=== PATIENT | male | born 1955 | race Caucasian/White ===

== ENCOUNTER 2018-02-12 09:58 | Emergency (ER) | payer OTHER ==
[2018-02-12] MEDS ORDERED: MECLIZINE HCL 25 MG TAB PO ONE (11:07)
--- NOTE | 2018-02-12 11:07 | EDPHY ---
H & P Stated Complaint: 2 wks increasing vertigo, nyst L side, CT 02/09 - Personal History Current Tetanus/Diphtheria Vaccine: Yes - Medical/Surgical History Hx Asthma: No Hx Chronic Respiratory Disease: No Hx Diabetes: No Hx Cardiac Disease: No Hx Renal Disease: No Hx Cirrhosis: No Hx Alcoholism: No Hx HIV/AIDS: No Hx Splenectomy or Spleen Trauma: No Other PMH: Ear surgery, HTN, Thyroid, hernia - Social History Smoking Status: Never smoked Time Seen by Provider: 02/12/18 10:38 HPI/ROS: CHIEF COMPLAINT: Dizziness HISTORY OF PRESENT ILLNESS: 62-year-old male presents with a 2 week history of intermittent dizziness. He is traveling around the country and 2 weeks ago he developed transient dizziness while driving. When he looks in his peripheral vision he gets the moment of feeling dizzy, especially when a car is driving past him. He was seen in an outside emergency department 1 week ago and had a normal evaluation, including laboratory studies, EKG and CT scan of the brain. He was placed on lisinopril 10 mg daily for hypertension. He has been keeping a blood pressure log since that visit and his blood pressures have been normal. He presents today because he has developed dizziness even when he is walking. The dizziness with walking occurs when he looks in his peripheral vision and is associated with anxiety. History of inner ear surgery x2. No chest pain, shortness of breath. REVIEW OF SYSTEMS: complete 10 point ROS reviewed and is negative except for the noted elements in the HPI (Vanna Ibrahim) - Physical Exam Exam: General Appearance: Alert, pleasant Eyes: Pupils equal and round, no conjunctival pallor or injection, horizontal nystagmus, looking to the left recreates the symptoms ENT, Mouth: Mucous membranes moist Neck: Normal inspection Respiratory: Lungs are clear to auscultation Cardiovascular: Regular rate and rhythm Gastrointestinal: Abdomen is soft and nontender Neurological: Alert, oriented x3, cranial nerves II through XII intact, motor 5 /5, sensory intact to light touch, normal gait Skin: Warm and dry, no rash Extremities: Nontender, no pedal edema Psychiatric: Mood and affect normal (Vanna Ibrahim) Constitutional: Initial Vital Signs Temperature (C) 36.9 C 02/12/18 10:12 Heart Rate 68 02/12/18 10:12 Respiratory Rate 16 02/12/18 10:12 Blood Pressure 178/106 H 02/12/18 10:12 O2 Sat (%) 95 02/12/18 10:12 O2 Delivery Mode Room Air Allergies/Adverse Reactions: No Known Allergies Allergy (Unverified 02/12/18 10:10) Home Medications: Medication Instructions Recorded Aspirin 81mg (*) 02/12/18 Levothyroxine 02/12/18 Lisinopril 02/12/18 Meclizine HCl [Meclizine HCl 25 mg 50 mg PO BID PRN #14 tab 02/12/18 (RX,OTC)] SIMVASTATIN 02/12/18 Medical Decision Making - Diagnostics EKG Interpretation: EKG interpreted by me reveals normal sinus rhythm, rate 61, large QRS and lead V2, consistent with RVH. (Vanna Ibrahim) ED Course/Re-evaluation: This patient presents with persistent and worsening vertigo. Prior evaluation including CT scan of the brain is unremarkable. Symptoms are clearly reproduced with eye movement. Neurologic exam is otherwise normal. MRI of the brain ordered to rule out CVA. Meclizine 25 mg orally given. Signed over to Dr. Britton at shift change. If the MRI of the brain is normal, discharge home with follow up with ENT. (Vanna Ibrahim) Differential Diagnosis: Differential diagnosis includes TIA, stroke, intracranial hemorrhage, tumor, electrolyte abnormality and acute labyrinthitis. (Vanna Ibrahim) Other Provider: This patient was signed out to me at [address] Ibrahim pending MRI brain, with plan for discharge if normal. This study was read as normal. On re-evaluation , patient feels better but is still symptomatic. I consulted Dr. Vivas from ENT who agrees with plan and will see the patient in office on Thursday. The patient is concerned about this timing given the fact they are visiting [place]. I attempted to call ENT to see if they had an earlier appointment available but was unable to reach them. I have written the patient for meclizine and we discussed strict return precautions. (Claudio Britton) - Data Points Laboratory Results: Laboratory Results 02/12/18 11:37 02/12/18 10:28 Medications Given: Discontinued Medications Meclizine HCl (Meclizine Hcl) 25 mg PO EDNOW ONE Stop: 02/12/18 11:08 Last Admin: 02/12/18 11:47 Dose: 25 mg Departure - Departure Disposition: Home, Routine, Self-Care Clinical Impression: Vertigo Condition: Good Instructions: Vertigo (ED) Additional Instructions: Take meclizine 25mg every 6 hours as needed for vertigo. Return for worsening symptoms or any concerns. Dr. Brenden Vivas from ENT will be able to see you on Thursday at 2:30pm. Call his office to confirm appointment. Referrals: RADHA VICENTE [Other] - As per Instructions Brenden Vivas MD [Medical Doctor] - As per Instructions Prescriptions: Meclizine HCl [Meclizine HCl 25 mg (RX,OTC)] 50 mg PO BID PRN #14 tab PRN Reason: vertigo
[2018-02-12 11:45] LABS: PLATELET COUNT 142 10^3/uL (150-400)
--- NOTE | 2018-02-12 14:18 | CPEKG ---
Test Reason : OPEN Blood Pressure : / mmHG Vent. Rate : 061 BPM Atrial Rate : 060 BPM P-R Int : 129 ms QRS Dur : 085 ms QT Int : 428 ms P-R-T Axes : 000 066 040 degrees QTc Int : 431 ms Sinus rhythm Consider RVH or posterior infarct Confirmed by Vanna Ibrahim ([id number]) on 02/12/2018 2:18:37 PM Referred By: Confirmed By:Vanna Ibrahim
[2018-02-12 17:38] VITALS: BP 170/65
== END 2018-02-12 17:37 | disposition home or self-care (01) ==
DX: R42 Dizziness and giddiness (principal); I10 Essential (primary) hypertension; I42.2 Other hypertrophic cardiomyopathy